=== PATIENT | female | born 1970 | race Caucasian/White ===

== ENCOUNTER 2024-01-30 10:49 | Emergency (ER) | payer OTHER, SELFPAY ==
[2024-01-30] VITALS (10 sets, daily range): BP systolic 91–119; BP diastolic 75–98; PULSE 79–98; BMI 24.3
--- NOTE | 2024-01-30 10:58 | ED.GENMED ---
History of Present Illness
General
Chief Complaint: Fainting Sensation
Source: patient
Exam Limitations: none
Time Seen by Provider: 01/30/24 10:56
History of Present Illness
History of Present Illness:
53-year-old otherwise healthy female presents via EMS from place of employment. 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 She also notes when she woke up this morning she felt that her heart was
racing. 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 She called EMS for possible cardiac arrest but patient never lost consciousness. She never had chest pain. Upon EMS arrival heart rate was 120. IV was started she gave fluids. Patient states upon arrival she
feels normal without any nausea chest pain shortness. She has been taking tirzepatide over the past 6 weeks. Dose increase 2 weeks ago Her sister has passed 10 years ago from sudden cardiac . Since then the patient has had a full cardiac
workup and nothing was found for her.
Past History
Past History
ED Past Medical History: None
ED Past Surgical History: None
Social History
Tobacco: Non-smoker
Alcohol: Occasional
Drug: None
Personal:
Living: with family
Phy Exam
Physical Exam
Physical Exam:
General: Well-appearing female no acute respiratory distress
HEENT: Normocephalic atraumatic
Heart: Tachycardic but regular
Lungs: Clear no wheeze
Abdomen is soft nontender nondistended no guarding rebound
Extremities: No cyanosis
Skin warm no rash
Course
Orders/Labs/Results
Orders:
Orders
01/30/24 10:56
Orthostatic VS- Treatment ONCE
01/30/24 10:57
Electrocardiogram (*1) Urgent
Reason for Study: Palpitations
EKG- Treatment ONCE
01/30/24 11:02
Complete Blood Count/With Diff Urgent
Comprehensive Metabolic Panel Urgent
Magnesium Urgent
TSH Reflex To Free T4 Urgent
Abnormal Lab Results
01/30/24
11:02
MCH 31.6 H pg
(27.0-31.0)
Absolute Monos (auto) 0.8 H 10^3/uL
(0.1-0.6)
Lymphocytes % 19.1 L %
(20.5-51.1)
Monocytes % 9.5 H %
(1.7-9.3)
Carbon Dioxide 18 L mmol/L
(22-30)
AST 41 H U/L
(14-36)
01/30/24 11:02
01/30/24 11:02
Vital Signs
Initial and Last Documented VS:
Initial Vital Signs
Pulse Resp BP
112 22 115/78
01/30/24 10:52 01/30/24 10:52 01/30/24 10:52
Last Documented Vital Signs
Temp Pulse Resp BP Pulse Ox
98.3 F 84 18 119/75 100
01/30/24 10:54 01/30/24 13:00 01/30/24 13:00 01/30/24 13:00 01/30/24 10:54
MDM/Problems Addressed
Differential Diagnosis Includes:
Lightheaded and presyncope. Patient was found to be tachycardic. No recent travel. No chest pain. Currently on exam heart rate is in the low 100s and she has no complaints. Will check labs, EKG TSH and magnesium. Will decide vital signs pending
*Critical Care Note
Total Time (30-74mins, 75-104mins- exclusive of procedures): Not Applicable
Update Note
Update Note:
EKG shows normal sinus rhythm with a rate of 89 no ischemic changes. QTc is 457ms
Patient has remained stable here vital signs are stable feeling well no complaints. I suspect near syncope but no arrhythmias or concerning findings on EKG. Recommend follow-up with her doctors
ED Attending Note
-
Portions of this chart may have been created with voice recognition software.� Occasional wrong word or��sound alike� substitutions may have occurred due to the inherent limitations of voice recognition software.
Discharge Plan
Departure
Patient Disposition: Home (Routine Discharge)
Date of Disposition: 01/30/24
Time of Disposition: 13:24
Patient with high blood pressure during this ER visit?: No
Discharge Problem:
Syncope, near
Instructions: Near Fainting (DC)
Prescriptions:
No Action
hydrocodone-ibuprofen 200 MG/7.5 MG tablet
1 tab PO Q6HPRN PRN (Reason: pain) Qty: 20 0RF
Referrals:
Saad Parks DO [Family Provider] -
Activity Restrictions/Additional Instructions:
Stay hydrated. Please return here for worsening symptoms otherwise follow-up with your treating physicians
Interventions
Interventions:
*Risk Screen - Suicide Last Done: 01/30/24 11:22
*General Assessment Last Done: 01/30/24 11:02
*Neglect/Abuse Screening Last Done: 01/30/24 11:22
*ED COVID-19 Vaccine History Last Done: 01/30/24 11:02
ED- Cardiac Assessment Last Done: 01/30/24 11:04
ED- Neurological Assessment Last Done: 01/30/24 11:04
Discharge Date and Time
Print Language: [id number]
[2024-01-30 11:23] LABS: % Basophils 0.9 % (0-2); % Eosinophils 3.1 % (0-6); % Immature Granulocytes 0.4 % (0-0.5); % Lymphocytes 19.1 % (20.5-51.1); % Monocytes 9.5 % (1.7-9.3); Absolute Basophils 0.1 10^3/uL (0-0.2); Absolute Eosinophils 0.3 10^3/uL (0-0.7); Absolute Lymphocytes 1.6 10^3/uL (1.2-3.4); Absolute Monocytes 0.8 10^3/uL (0.1-0.6); Absolute Neutrophils 5.5 10^3/uL (1.4-6.5); Hematocrit 40.7 % (37.0-47.0); Hemoglobin 13.6 g/dL (12.0-16.0); Mean Corp Hgb Conc. 33.4 g/dL (33.0-37.0); Mean Corpuscular Hgb 31.6 pg (27.0-31.0); Mean Corpuscular Volume 94.7 fL (81.0-99.0); Mean Platelet Volume 9.7 fL (7.4-10.4); Nucleated Red Blood Cells % 0 %; Platelet Count 302 10^3/uL (130-400); Red Cell Dist. Width 11.8 % (11.5-14.5); White Blood Cell Count 8.1 10^3/uL (4.8-10.8)
[2024-01-30 11:34] LABS: ALT (SGPT) 33 U/L (0-35); AST (SGOT) 41 U/L (14-36); Albumin 4.7 g/dl (3.5-5.0); Alkaline Phosphatase 67 U/L (38-126); Blood Urea Nitrogen 10 mg/dl (7-17); Calcium 9.7 mg/dl (8.4-10.2); Carbon Dioxide 18 mmol/L (22-30); Chloride 106 mmol/L (98-107); Estimated Creatinine Clearance 79 ml/min; Glucose 83 mg/dl (70-99); Magnesium 2.1 mg/dl (1.6-2.3); Potassium 4.3 mmol/L (3.5-5.1); Sodium 139 mmol/L (135-145); Total Bilirubin 0.8 mg/dl (0.2-1.3); Total Protein 7.2 g/dl (6.3-8.2); eGFR > 60.00
[2024-01-30 12:04] LABS: TSH Reflex To Free T4 1.04 uIU/ml (0.47-4.68)
== END 2024-01-30 15:19 | disposition home or self-care (01) ==
LOC: EMR 10:49
PROVIDERS: Physician Assistant; EMERGENCY PHYSICIAN Emergency Medicine; FAMILY PHYSICIAN Internal Medicine
DX: R55 Syncope and collapse (principal)
CPT/HCPCS: 99284; 80053; 83735; 84443; 85025; 93005